=== PATIENT | female | born 1995 | race Two or more races ===

== ENCOUNTER 2022-12-18 10:47 | Emergency (ER) | payer OTHER ==
[~2022-12-18] VITALS: Ht 157.5 cm; Wt 52.2 kg
== END 2022-12-18 16:46 | disposition home or self-care (01) ==
LOC: ER 10:47
DX: S40.012A Contusion of left shoulder, initial encounter (principal); V49.9XXA Car occupant (driver) (passenger) injured in unspecified traffic accident, initial encounter; Y93.9 Activity, unspecified; Y92.9 Unspecified place or not applicable; Y99.9 Unspecified external cause status